=== PATIENT | female | born 1990 | race Caucasian/White ===

== ENCOUNTER 2017-06-22 02:05 | Inpatient (IN) | payer OTHER ==
[~2017-06-22] VITALS: Ht 149.9 cm; Wt 71.0 kg
[~2017-06-22 02:05] MED LIST: ALBU90OI INH; BIRTH CONTROL PATCH TOP; DIPATR PO; HYDACE5325 PO; IBUP600 PO; NORETHTP TOP; Norco 5-325 Ta1 EACH PO; ONDA4ODT MM; ONDA8ODT MM; PROM25 PO; PROP10 PO; RXHYD5325 PO; RXONDA4ODT MM; RXOXYACE PO; Zofran Odt4 MG SL; Zofran Odt8 MG SL; Zofran4 MG PO
[2017-06-22 03:54] LABS: BASOPHILS ABSOLUTE AUTO 0.02 K/mm3 (0.00-0.23); BASOPHILS PERCENT AUTO 0 % (0-2); EOSINOPHILS ABSOLUTE AUTO 0.06 K/mm3 (0.00-0.68); EOSINOPHILS PERCENT AUTO 0 % (0-6); Hematocrit 34.5 % (33.0-51.0); Hemoglobin 11.2 g/dL (11.5-16.0); IMMATURE GRAN ABSOLUTE AUTO 0.06 K/mm3 (0.00-0.10); IMMATURE GRAN PERCENT AUTO 0 % (0-1); LYMPHOCYTES ABSOLUTE AUTO 2.79 K/mm3 (0.84-5.20); LYMPHOCYTES PERCENT AUTO 21 % (21-46); MONOCYTES ABSOLUTE AUTO 1.39 K/mm3 (0.16-1.47); MONOCYTES PERCENT AUTO 10 % (4-13); Mean Corpuscular HGB 28.3 pg (26.0-34.0); Mean Corpuscular HGB Conc 32.5 g/dL (31.5-36.5); Mean Corpuscular Volume 87 fL (80-100); Mean Platelet Volume 9.4 fL (9.1-12.4); NEUTROPHILS ABSOLUTE AUTO 9.25 K/mm3 (1.96-9.15); NEUTROPHILS PERCENT AUTO 68 % (41-73); Platelet Count 214 K/mm3 (150-400); RDW Coefficient Variation 14.7 % (11.7-14.2); RDW Standard Deviation 46.7 fL (35.1-46.3); Red Blood Cell Count 3.96 M/mm3 (3.80-5.20); White Blood Cell Count 13.57 K/mm3 (4.00-11.30)
[2017-06-22 13:07] LABS: PCO2 Cord - Arterial 51.9 mmHg (40-50); PO2 Cord - Arterial 12.2 mmHg (16-20)
[2017-06-22 13:12] LABS: PCO2 Cord - Venous 51.1 mmHg (40-50); pH Umbilical Cord - Venous 7.32 (7.26-7.35)
[2017-06-22 13:15] LABS: PO2 Cord - Venous < 28 mmHg (28-32)
[2017-06-23 06:18] LABS: Hematocrit 24.8 % (33.0-51.0); Hemoglobin 7.9 g/dL (11.5-16.0); Mean Corpuscular HGB 28.3 pg (26.0-34.0); Mean Corpuscular HGB Conc 31.9 g/dL (31.5-36.5); Mean Corpuscular Volume 89 fL (80-100); Platelet Count 170 K/mm3 (150-400); RDW Coefficient Variation 15.3 % (11.7-14.2); RDW Standard Deviation 49.4 fL (35.1-46.3); Red Blood Cell Count 2.79 M/mm3 (3.80-5.20); White Blood Cell Count 18.79 K/mm3 (4.00-11.30)
[2017-06-24 06:15] LABS: Hematocrit 26.5 % (33.0-51.0); Hemoglobin 8.3 g/dL (11.5-16.0); Mean Corpuscular HGB 27.8 pg (26.0-34.0); Mean Corpuscular HGB Conc 31.3 g/dL (31.5-36.5); Mean Corpuscular Volume 89 fL (80-100); Platelet Count 199 K/mm3 (150-400); RDW Coefficient Variation 15.6 % (11.7-14.2); RDW Standard Deviation 50.3 fL (35.1-46.3); Red Blood Cell Count 2.99 M/mm3 (3.80-5.20); White Blood Cell Count 13.53 K/mm3 (4.00-11.30)
[2017-06-24] MEDS ORDERED: IBUP800 PO (13:37)
[2017-06-24] MEDS ORDERED: Percocet 5-3251 EACH PO (13:37)
== END 2017-06-24 14:25 | disposition home or self-care (01) | DRG 766 ==
LOC: BC 02:05 → OBS 03:31 → BC 03:32
PROVIDERS: Nurse Practitioner Obstetrics & Gynecology; Obstetrics & Gynecology
PROC: 10907ZC Drainage of Amniotic Fluid, Therapeutic from Products of Conception, Via Natural or Artificial Opening (ICD-10-PCS; 2017-06-22)
PROC: 10D00Z1 Extraction of Products of Conception, Low, Open Approach (ICD-10-PCS; principal; 2017-06-22 11:00)
PROC: 3E0234Z Introduction of Serum, Toxoid and Vaccine into Muscle, Percutaneous Approach (ICD-10-PCS; 2017-06-24)
DX: O32.4XX0 Maternal care for high head at term, not applicable or unspecified (principal); O62.1 Secondary uterine inertia; O77.0 Labor and delivery complicated by meconium in amniotic fluid; O99.824 Streptococcus B carrier state complicating childbirth; Z37.0 Single live birth; Z3A.41 41 weeks gestation of pregnancy; Z23 Encounter for immunization
CPT/HCPCS: 36415; 82803; 85025; 85027; 86850; 86900; 86901; C9113; J0290; J0690; J1885; J2370; J2405; J2590; J2765; J3010; J7120; Q2038

== ENCOUNTER 2019-01-02 12:02 | Day surgery (SDC) | payer OTHER ==
[~2019-01-02] VITALS: Ht 149.9 cm; Wt 53.2 kg
[~2019-01-02 12:02] MED LIST changes: +IBUP800 PO; +Percocet 5-3251 EACH PO; +SERT100 PO; +Ventolin/Prove6.7 GM INH
--- NOTE | 2019-01-02 13:57 | NUR ---
01/02/19 3127 Gary Lema INFORMED PT OF DELAY D/T PREVIOUS CASE TAKING LONGER THAN EXPECTED. PT AND SPOUSE STATE AN UNDERSTANDING. PT RESTING COMFORTABLY IN PRE OP W/ SPOUSE AT BEDSIDE. CALL LIGHT WITHIN REACH, WILL CONTINUE TO MONITOR UNTIL REPORT HANDOFF TO OR NURSE.
--- NOTE | 2019-01-02 17:04 | NUR ---
01/02/19 1706 Kendall Burris LATE [id number] PATIENT STATES SHE IS NAUSEATED. PATIENT DENIES PAIN AT THIS TIME. ZOFRAN 4 MG IV GIVEN. WILL CONTINUE TO MONITOR.
--- NOTE | 2019-01-02 17:13 | NUR ---
01/02/19 171 Kendall Burris LATE [id number] AFTER MOVING PATIENT UP TO RECLINER CHAIR SHE STARTED TO GET NAUSEATED. GAVE REGLAN 10 MG IV. WILL CONTINUE TO MONITOR. VSS
== END 2019-01-02 17:37 | disposition home or self-care (01) ==
LOC: ORSCSDS 12:02
PROVIDERS: Obstetrics & Gynecology
PROC: 0UB74ZZ Excision of Bilateral Fallopian Tubes, Percutaneous Endoscopic Approach (ICD-10-PCS; principal; 2019-01-02 13:45)
DX: Z30.2 Encounter for sterilization (principal); N80.3 Endometriosis of pelvic peritoneum; F41.8 Other specified anxiety disorders; J45.909 Unspecified asthma, uncomplicated
CPT/HCPCS: 88302; J0171; J0690; J1100; J1885; J2250; J2405; J2704; J2710; J2765; J3010; J7120

== ENCOUNTER 2021-08-21 06:01 | Day surgery (SDC) | payer OTHER ==
[~2021-08-21] VITALS: Ht 149.9 cm; Wt 52.6 kg
[~2021-08-21 06:01] MED LIST changes: +ATOM10 PO; +HYDHCL25 PO; +LIDO5TO TOP; +MULTIPLE VITAM1 EACH PO; +MULVITA PO; +PRAZ1 PO; +SERT25 PO; +VENL75ER PO
--- NOTE | 2021-08-21 06:55 | NUR ---
History, Chart, Medications and Allergies reviewed before start of procedure. Patient confirms NPO status and agrees with scheduled surgery. Patient States Post-Procedure ride home has been arranged with a friend.
[2021-08-21] MEDS ORDERED: [UNRECOGNIZED DRUG - CODE] PO (06:57)
--- NOTE | 2021-08-21 07:51 | NUR ---
08/21/21 0751 Taco Allen NO ANTIBIOTICS PER .
== END 2021-08-21 22:47 | disposition home or self-care (01) ==
LOC: ORSCMMR 06:01
PROVIDERS: Surgery
PROC: 3E0H7GC Introduction of Other Therapeutic Substance into Lower GI, Via Natural or Artificial Opening (ICD-10-PCS; principal; 2021-08-21 07:30)
DX: K60.1 Chronic anal fissure (principal); J45.909 Unspecified asthma, uncomplicated; Z79.899 Other long term (current) drug therapy; F41.8 Other specified anxiety disorders; Z87.891 Personal history of nicotine dependence
CPT/HCPCS: J0585; J1100; J2250; J2405; J2704; J7120

== ENCOUNTER 2021-10-22 21:59 | Emergency (ER) | payer OTHER ==
[~2021-10-22] VITALS: Ht 162.6 cm; Wt 54.4 kg
[~2021-10-22 21:59] MED LIST changes: +[UNRECOGNIZED DRUG - CODE] PO
== END 2021-10-22 23:00 | disposition home or self-care (01) ==
LOC: ER 21:59
DX: J02.9 Acute pharyngitis, unspecified (principal); G43.909 Migraine, unspecified, not intractable, without status migrainosus
CPT/HCPCS: 99282

== ENCOUNTER 2021-11-25 20:18 | Emergency (ER) | payer OTHER ==
[~2021-11-25] VITALS: Ht 180.3 cm; Wt 52.2 kg
[2021-11-25 21:09] LABS: BASOPHILS ABSOLUTE AUTO 0.04 K/mm3 (0.00-0.23); BASOPHILS PERCENT AUTO 1 % (0-2); EOSINOPHILS ABSOLUTE AUTO 0.13 K/mm3 (0.00-0.68); EOSINOPHILS PERCENT AUTO 2 % (0-6); Hematocrit 39.1 % (33.0-51.0); Hemoglobin 12.9 g/dL (11.5-16.0); IMMATURE GRAN ABSOLUTE AUTO 0.02 K/mm3 (0.00-0.10); IMMATURE GRAN PERCENT AUTO 0 % (0-1); LYMPHOCYTES ABSOLUTE AUTO 3.26 K/mm3 (0.84-5.20); LYMPHOCYTES PERCENT AUTO 49 % (21-46); MONOCYTES ABSOLUTE AUTO 0.33 K/mm3 (0.16-1.47); MONOCYTES PERCENT AUTO 5 % (4-13); Mean Corpuscular HGB 29.6 pg (26.0-34.0); Mean Corpuscular Volume 90 fL (80-100); NEUTROPHILS ABSOLUTE AUTO 2.94 K/mm3 (1.96-9.15); NEUTROPHILS PERCENT AUTO 44 % (41-73); RDW Coefficient Variation 12.9 % (11.7-14.2); RDW Standard Deviation 42.2 fL (35.1-46.3); Red Blood Cell Count 4.36 M/mm3 (3.80-5.20); White Blood Cell Count 6.72 K/mm3 (4.00-11.30)
[2021-11-25 21:10] LABS: Albumin, Blood 4.2 g/dL (3.4-5.0); Albumin/Globulin Ratio 1.1 (0.8-1.8); Bilirubin, Total 0.4 mg/dL (0.1-1.0); Bun/Creatinine Ratio 12.3 (12.0-20.0); Creatinine, Blood 0.65 mg/dL (0.40-1.00); Globulin, Blood 3.8 g/dL (2.2-4.0); Mean Platelet Volume 9.6 fL (9.1-12.4); Potassium, Blood 3.7 mmol/L (3.5-5.5)
[2021-11-25 21:26] LABS: Platelet Count 186 K/mm3 (150-400)
== END 2021-11-25 22:30 | disposition home or self-care (01) ==
LOC: ER 20:18
PROVIDERS: Emergency Medicine
DX: R10.32 Left lower quadrant pain (principal); R10.31 Right lower quadrant pain; R11.2 Nausea with vomiting, unspecified; F10.129 Alcohol abuse with intoxication, unspecified; Y90.6 Blood alcohol level of 120-199 mg/100 ml; Z79.899 Other long term (current) drug therapy; Z91.018 Allergy to other foods
CPT/HCPCS: 80053; 83690; 84703; 85025; A9270; G0480; J1630; J1885; J7120

== ENCOUNTER 2023-01-07 10:37 | Day surgery (SDC) | payer OTHER ==
[~2023-01-07] VITALS: Ht 149.9 cm; Wt 53.2 kg
[2023-01-07 11:55] VITALS: BP 101/69
--- NOTE | 2023-01-07 11:57 | NUR ---
01/07/23 1157 Tara Reyes IV DC'D CATH INTACT. PT TOERATED WELL
== END 2023-01-07 11:57 | disposition home or self-care (01) ==
LOC: ORSCSDS 10:37
PROVIDERS: Specialist
PROC: 0DB68ZX Excision of Stomach, Via Natural or Artificial Opening Endoscopic, Diagnostic (ICD-10-PCS; principal; 2023-01-07 12:15)
PROC: 0DB58ZX Excision of Esophagus, Via Natural or Artificial Opening Endoscopic, Diagnostic (ICD-10-PCS; principal; 2023-01-07 12:15)
DX: K21.9 Gastro-esophageal reflux disease without esophagitis (principal); F41.9 Anxiety disorder, unspecified; F32.A Depression, unspecified; J45.909 Unspecified asthma, uncomplicated; Z87.891 Personal history of nicotine dependence; Z79.899 Other long term (current) drug therapy
CPT/HCPCS: 88305; 88342; J2250; J2704; J7120

== ENCOUNTER 2024-02-23 15:21 | Emergency (ER) | payer OTHER ==
[~2024-02-23] VITALS: Ht 149.9 cm; Wt 50.8 kg
[2024-02-23] MEDS ORDERED: HYDROcodone 10-APAP 325 TAB PO ONE (18:20)
[2024-02-23] MEDS ORDERED: RX Prepack 6 Tabs Oxycodone 5mg UD ONE (18:35)
[2024-02-23 19:00] VITALS: BP 100/51
[2024-02-24] MEDS ORDERED: Percocet 5-3251 EACH PO (09:19)
== END 2024-02-23 20:00 | disposition home or self-care (01) ==
LOC: ER 15:21
DX: K64.8 Other hemorrhoids (principal); G43.909 Migraine, unspecified, not intractable, without status migrainosus; Z79.899 Other long term (current) drug therapy; Z91.018 Allergy to other foods
CPT/HCPCS: 99284; A9270

== ENCOUNTER → 2024-05-18 | Outpatient (CLI) | payer OTHER ==
[~2024-05-18] MED LIST changes: +Cyclobenzaprine5 MG PO; +HYDACE10B PO; +LIDOCAINE; +LOPE2C; +ONDA4; +PANT20 PO; +QVAR REDIHALE10.6 G3 IH; +SUMA25 PO
[2024-05-18 15:53] LABS: Adenovirus F 40/41 Not Detected (NOT DETECT); Astrovirus Not Detected (NOT DETECT); Campylobacter Sp Not Detected (NOT DETECT); Cryptosporidium Not Detected (NOT DETECT); Cyclospora Cayetanensis Not Detected (NOT DETECT); E. Coli O157 Not Detected (NOT DETECT); Entamoeba Histolytica Not Detected (NOT DETECT); Enteroaggregative E. coli-EAEC Not Detected (NOT DETECT); Enteropathogenic E. coli-EPEC Not Detected (NOT DETECT); Enterotoxigenic E. coli-ETEC Not Detected (NOT DETECT); Giardia Lamblia Not Detected (NOT DETECT); Norovirus GI/GII Not Detected (NOT DETECT); Plesiomonas Shigelloides Not Detected (NOT DETECT); Rotavirus A Not Detected (NOT DETECT); Salmonella Sp Not Detected (NOT DETECT); Sapovirus Not Detected (NOT DETECT); Shiga Toxin-prod E. coli-STEC Not Detected (NOT DETECT); Shigella/Enteroin E. coli-EIEC Not Detected (NOT DETECT); Vibrio Cholerae Not Detected (NOT DETECT); Vibrio Sp Not Detected (NOT DETECT); Yersinia Enterocolitica Not Detected (NOT DETECT)
[2024-05-21 13:25] LABS: CALPROTECTIN,FECAL 7 ug/g (<=49)
[2024-05-21 13:27] LABS: PANCREATIC ELASTASE,FECAL >800 ug/g (>=100)
== END | disposition home or self-care (01) ==
LOC: LAB 10:00 → LAB SHORT 10:00
PROVIDERS: Family Medicine
DX: K52.9 Noninfective gastroenteritis and colitis, unspecified (principal)
CPT/HCPCS: 82653; 83993; 87507

== ENCOUNTER 2024-06-01 07:10 | Day surgery (SDC) | payer OTHER ==
[~2024-06-01] VITALS: Ht 148 cm; Wt 49.5 kg
[2024-06-01] MEDS ORDERED: Lactated Ringer's 1,000 ML IV SCH (07:35)
[2024-06-01] MEDS ORDERED: Bupivacaine 0.5% HCl 5 MG/ML 30MLVIAL ONE ×2 (07:50→09:15)
[2024-06-01] MEDS ORDERED: Botulinum Toxin Type A 100 U Vial IM SCH (07:55)
[2024-06-01 08:15] VITALS: BP 138/84
[2024-06-01] MEDS ORDERED: Midazolam HCl 1MG / ML 2ML Vial IV ONE (08:15)
--- NOTE | 2024-06-01 08:31 | NUR ---
History, Chart, Medications and Allergies reviewed before start of procedure. Patient up to Ambulate independently. Gait steady. Pre-Op teaching done. Pt verbalizes understanding. Patient confirms NPO status and agrees with scheduled surgery. Patient States Post-Procedure ride home has been arranged.
[2024-06-01] MEDS ORDERED: propofoL 20 ML IV ONE ×2 (08:46→09:16)
--- NOTE | 2024-06-01 09:00 | NUR ---
06/01/24 0900 Karla Drew MAC WITH PREM PAINTER; SEE ANESTHESIA RECORDS. IN OR 2
[2024-06-01] MEDS ORDERED: Dexamethasone Sod Phos 10 MG/ML 1ML VIAL ONE (09:14)
[2024-06-01] MEDS ORDERED: Ondansetron HCl 2 MG / ML 2ML Vial ONE (09:14)
[2024-06-01 09:35] VITALS: BP 93/50
[2024-06-01 09:45] VITALS: BP 96/56
--- NOTE | 2024-06-01 09:52 | NUR ---
DR MEDRANO AT BEDSIDE SPEAKING TO PATIENT ABOUT PROCEDURE. DR MEDRANO STATES AN ANALGESIC PRESCRIPTION WAS SENT TO [facility].
--- NOTE | 2024-06-01 09:57 | NUR ---
SUPPLEMENTAL O2 OFF.
[2024-06-01 10:07] VITALS: BP 128/71
[2024-06-01 10:32] VITALS: BP 113/79
--- NOTE | 2024-06-01 11:05 | NUR ---
1045- PATIENT UP TO DRESS. GAIT STEADY. GAUZE DRSG INTACT TO ANUS WITH NO NOTED DRAINAGE. PATIENT VOIDED WITHOUT DIFFICULTY. NO C/O VERBALIZED. DENIES PAIN. TOLERATING SIPS OF WATER. Discharge instructions reviewed with patient. Patient verbalizes understanding. Copy given to patient to take home. Patient States Post-Procedure ride home has been arranged with Molly, who patient identifies as her partner.
== END 2024-06-01 11:01 | disposition home or self-care (01) ==
LOC: ORSCMMR 07:10 → ORD 08:45 → ORSCMMR 08:45
PROVIDERS: Surgery
PROC: 0DBQXZX Excision of Anus, External Approach, Diagnostic (ICD-10-PCS; principal; 2024-06-01 08:45)
PROC: 0DB78ZX Excision of Stomach, Pylorus, Via Natural or Artificial Opening Endoscopic, Diagnostic (ICD-10-PCS; principal; 2024-06-01 08:45)
PROC: 3E0H3GC Introduction of Other Therapeutic Substance into Lower GI, Percutaneous Approach (ICD-10-PCS; principal; 2024-06-01 08:45)
DX: K21.9 Gastro-esophageal reflux disease without esophagitis (principal); R11.0 Nausea; K60.1 Chronic anal fissure; K62.0 Anal polyp; K64.4 Residual hemorrhoidal skin tags; F90.9 Attention-deficit hyperactivity disorder, unspecified type; J45.909 Unspecified asthma, uncomplicated; F41.8 Other specified anxiety disorders; Z79.899 Other long term (current) drug therapy
CPT/HCPCS: 88304; 88305; 88342; J0585; J1100; J2250; J2405; J2704; J7120